=== PATIENT | female | born 2000 | race Caucasian/White ===

== ENCOUNTER 2022-09-05 09:16 | Emergency (ER) | payer BC ==
[~2022-09-05] VITALS: Ht 162.6 cm; Wt 72.6 kg
--- NOTE | 2022-09-05 10:58 | NUR ---
US TECH AT BEDSIDE
[2022-09-05] MEDS ORDERED: MORPHINE SULFATE INJ 2 MG/ML DISP.SYRIN IV ONE (11:00)
[2022-09-05] MEDS ORDERED: ONDANSETRON HCL/PF 4 MG/2 ML VIAL IVP ONE (11:00)
--- NOTE | 2022-09-05 11:00 | NUR ---
BIBFRIEND C/O UPPER ABDOMINAL PAIN, H/O GALLSTONE. AMBULATORY, PLACED IN BED, AAOX4, IN PAIN 01/24 PS
[2022-09-05 11:01] LABS: BILIRUBIN,URINE 2+ (NEGATIVE); COLOR,URINE YELLOW (YELLOW); LEUKOCYTE ESTERASE ,URINE TRACE (NEGATIVE); NITRITE, URINE NEGATIVE (NEGATIVE); PROTEIN,URINE 1+ mg/dl (NEGATIVE); UGLUCOSE NEGATIVE (NEGATIVE)
--- NOTE | 2022-09-05 11:15 | NUR ---
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
[2022-09-05 11:16] LABS: RBC,URINE NONE SEEN /HPF (0-2); WBC,URINE 0-2 /HPF (0-3)
[2022-09-05] MEDS ORDERED: ONDANSETRON HCL/PF 4 MG/2 ML VIAL ONE (11:17)
[2022-09-05] MEDS ORDERED: MORPHINE SULFATE INJ 4 MG/ML DISP.SYRIN ONE (11:17)
[2022-09-05 11:20] LABS: MUCUS,URINE Moderate /LPF (None Seen)
[2022-09-05 11:21] LABS: BACTERIA,URINE Few /HPF (None Seen); CALCIUM OXALATE CRYSTALS,UR Moderate /HPF (None Seen); SQUAMOUS EPITHELIAL CELL,UR Many /HPF (None Seen)
[2022-09-05 11:41] LABS: BASOPHILS % (AUTO) 0.4 % (0.0-2.0); EOSINOPHILS % (AUTO) 3.7 % (0.0-6.0); HEMATOCRIT 45 % (33-45); LYMPHOCYTES # (AUTO) 1.7 K/uL (0.8-4.8); MEAN CORPUSCULAR HGB CONC 33 g/dl (31.0-36.0); MEAN CORPUSCULAR VOLUME 89 fL (82-100); MONOCYTES # (AUTO) 0.6 K/uL (0.1-1.30); MONOCYTES % (AUTO) 7.9 % (2.0-12.0); PLATELET COUNT (AUTO) 300 K/uL (150-450); RED BLOOD CELL COUNT(AUTO) 5.06 MIL/uL (4.0-5.2); WHITE BLOOD COUNT (AUTO) 7.5 K/uL (4.3-11.0)
[2022-09-05 11:51] LABS: CALCIUM, SERUM 9.5 mg/dL (8.5-10.1); CREATININE 0.7 mg/dL (0.6-1.3); POTASSIUM 3.5 mmol/L (3.5-5.1)
[2022-09-05 11:57] LABS: BILIRUBIN,DIRECT 0.2 mg/dL (0.0-0.2); BILIRUBIN,TOTAL 0.6 mg/dL (0.2-1.0); TOTAL PROTEIN, SERUM 7.5 g/dL (6.4-8.2)
[2022-09-05] MEDS ORDERED: PANTOPRAZOLE 40 MG VIAL ONE (11:59)
[2022-09-05] MEDS ORDERED: MAG HYDROX/AL HYDROX/SIMETH 30 ML UDC PO ONE (12:00)
[2022-09-05] MEDS ORDERED: PANTOPRAZOLE 40 MG VIAL IV ONE (12:00)
[2022-09-05] MEDS ORDERED: LIDOCAINE VISCOUS 2% UD 15 ML UDC MM ONE (12:00)
[2022-09-05] MEDS ORDERED: METR500T PO (12:29)
[2022-09-05] MEDS ORDERED: CLAR-45 PO (12:29)
[2022-09-05] MEDS ORDERED: OMEP40CA21 PO (12:29)
[2022-09-05] MEDS ORDERED: IV NS 0.9% 1,000 ML IV ONE (12:30)
--- NOTE | 2022-09-05 13:20 | NUR ---
IV removed. Catheter intact and site benign. Pressure and 4x4 applied to site. No bleeding noted.Patient discharged to home in stable condition. Written and verbal after care instructions given. Patient verbalizes understanding of instruction.
[2022-09-05 13:22] VITALS: BP 120/70
== END 2022-09-05 13:20 | disposition home or self-care (01) ==
LOC: ER 09:16
DX: K27.9 Peptic ulcer, site unspecified, unspecified as acute or chronic, without hemorrhage or perforation (principal); R10.13 Epigastric pain; R11.2 Nausea with vomiting, unspecified; Z60.2 Problems related to living alone
CPT/HCPCS: 99285; 96374; 76705; 71045; 96375; 96361; 85025; 80048; 83690; 80076; 84703; 81001; 36415; J2270; J2405; J7030; C9113